=== PATIENT | male | born 1955 ===

== ENCOUNTER → 2024-09-03 | Outpatient (CLI) | payer OTHER ==
[2024-09-03 15:11] LABS: Stool Occult Bld Immuno 1 Negative (NEGATIVE)
== END | disposition home or self-care (01) ==
LOC: LAB 13:00 → LAB SHORT 13:00
PROVIDERS: Registered Nurse Oncology
DX: D70.9 Neutropenia, unspecified (principal); D64.9 Anemia, unspecified
CPT/HCPCS: 82274